=== PATIENT | female | born 1980 | race Caucasian/White ===

== ENCOUNTER 2021-04-30 06:44 | Day surgery (SDC) | payer BC ==
[2021-04-30] MEDS: Lactated Ringers 1,000 ML IV SCH ×2 (06:55→11:12)
[2021-04-30] MEDS ORDERED: Lidocaine 1%/Sod Bicarbonate in NS 8.4% 1 ML Syringe IDERM PRN (07:00)
[2021-04-30] MEDS ORDERED: Sodium Chloride 0.9% 10 ML Syringe FLUSH PRN (07:00)
[2021-04-30] MEDS ORDERED: Propofol 200 MG/20 ML SDV ONE (07:04)
[2021-04-30] MEDS ORDERED: Ondansetron 4 MG/2 ML SDV ONE (07:04)
[2021-04-30] MEDS ORDERED: Rocuronium 50 MG/5 ML Vial ONE (07:04)
[2021-04-30] MEDS ORDERED: fentaNYL 250 MCG/5 ML SDV ONE (07:05)
[2021-04-30] MEDS ORDERED: Midazolam 1 MG/ML 2 ML SDV ONE (07:05)
[2021-04-30] MEDS ORDERED: Lidocaine 1% 4 ML ONE (07:05)
[2021-04-30] MEDS ORDERED: ceFAZolin 1 GM Vial ONE (07:09)
[2021-04-30] MEDS ORDERED: Bupivacaine 0.5% 30 ML SDV ONE (07:21)
--- NOTE | 2021-04-30 07:28 | PCM.PREANE ---
Preanesthetic Assessment - Procedure Proposed Procedure: vaginal hysterectomy - Anesthesia/Transfusion/Family Hx Anesthesia History: Prior Anesthesia Without Reaction Family History of Anesthesia Reaction: No Transfusion History: No Prior Transfusion(s) - Review of Systems General: No Symptoms Pulmonary: No Symptoms Cardiovascular: Dyspnea on Exertion Gastrointestinal: No Symptoms Neurological: No Symptoms Other: Reports: Anxiety - Physical Assessment NPO Status Date: 04/29/21 NPO Status Time: 00:00 Vital Signs: Last Vital Signs Temp 36.2 C 04/30/21 06:50 Pulse 80 04/30/21 06:50 Resp 16 04/30/21 06:50 BP 127/76 04/30/21 06:50 Pulse Ox 95 04/30/21 06:50 Height: 1.78 m Weight: 101.8 kg ASA Class: 2 Mental Status: Alert & Oriented x3 Airway Class: Mallampati = 1 Dentition: Reports: Normal Dentition Thyro-Mental Finger Breadths: 3 Mouth Opening Finger Breadths: 3 ROM/Head Extension: Full Lungs: Clear to Auscultation, Normal Respiratory Effort Cardiovascular: Regular Rate, Regular Rhythm - Allergies Allergies/Adverse Reactions: Allergies Allergy/AdvReac Type Severity Reaction Status Date / Time No Known Allergies Allergy Verified 04/29/21 15:27 - Anesthesia Plan Pre-Op Medication Ordered: None - Acknowledgements Anesthesia Type Planned: General Anesthesia Pt an Appropriate Candidate for the Planned Anesthesia: Yes Alternatives and Risks of Anesthesia Discussed w Pt/Guardian: Yes Pt/Guardian Understands and Agrees with Anesthesia Plan: Yes PreAnesthesia Questionnaire Gastrointestinal History: Reports: Irritable Bowel Syndrome 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 History: Reports: Fibroids, Psychiatric History: Reports: Anxiety, Depression - Past Surgical History Other HEENT Surgeries/Procedures: wears glasses Other Endocrine Surgeries/Procedures: diet controlled hypoglycemia - SUBSTANCE USE Tobacco Use Status *Q: Former Tobacco User Tobacco Use Within Last Twelve Months: No Second Hand Smoke Exposure: No Days Per Week of Alcohol Use: 0 Number of Drinks Per Day: 0 Total Drinks Per Week: 0 Recreational Drug Use History: No - HOME MEDS Home Medications: Home Meds Sertraline [Zoloft] 100 mg PO DAILY 04/29/21 [History] - CURRENT (IN HOUSE) MEDS Current Meds: Current Medications Lactated Ringer's (Ringers, Lactated) 1,000 mls @ 125 mls/hr IV ASDIRECTED TETO Stop: 04/30/21 23:00 Lidocaine/Sodium Bicarbonate (Lidocaine 1%/Sod Bicarbonate In Ns 8.4% 1 Ml Syringe) 0.25 ml IDERM ONETIME PRN PRN Reason: Prior to IV Start Stop: 04/30/21 18:00 Sodium Chloride (Sodium Chloride 0.9% 10 Ml Syringe) 10 ml FLUSH ASDIRECTED PRN PRN Reason: Keep Vein Open Stop: 04/30/21 18:00 Discontinued Medications Cefazolin Sodium (Cefazolin 1 Gm Vial) Confirm Administered Dose 2 gm .ROUTE .STK-MED ONE Stop: 04/30/21 07:10 Fentanyl (Fentanyl 250 Mcg/5 Ml Sdv) Confirm Administered Dose 250 mcg .ROUTE .STK-MED ONE Stop: 04/30/21 07:06 Lidocaine HCl (Xylocaine-Mpf 1%) Confirm Administered Dose 4 mls @ as directed .ROUTE .STK-MED ONE Stop: 04/30/21 07:06 Midazolam HCl (Midazolam 1 Mg/Ml 2 Ml Sdv) Confirm Administered Dose 2 mg .ROUTE .STK-MED ONE Stop: 04/30/21 07:06 Ondansetron HCl (Ondansetron 4 Mg/2 Ml Sdv) Confirm Administered Dose 4 mg .ROUTE .STK-MED ONE Stop: 04/30/21 07:05 Propofol (Propofol 200 Mg/20 Ml Sdv) Confirm Administered Dose 200 mg .ROUTE .STK-MED ONE Stop: 04/30/21 07:05 Rocuronium [place] (Rocuronium 50 Mg/5 Ml Vial) Confirm Administered Dose 50 mg .ROUTE .STK-MED ONE Stop: 04/30/21 07:05
[2021-04-30] MEDS ORDERED: HYDROmorphone 0.5 MG/0.5 ML Syringe ONE ×2 (08:08→08:39)
[2021-04-30] MEDS: Sodium Chloride 0.9% 50 ML SDV ONE ×2 (08:11→08:22)
[2021-04-30] MEDS: Lidocaine 1% with EPINEPHrine 1:100,000 10 ML MDV ONE ×2 (08:11→08:21)
[2021-04-30] MEDS ORDERED: Lactated Ringers 1,000 ML ONE (08:15)
[2021-04-30] MEDS ORDERED: Acetaminophen/oxyCODONE 325-5 MG Tab PO PRN (08:58)
[2021-04-30] MEDS ORDERED: Ondansetron 4 MG/2 ML SDV IVPUSH PRN (08:58)
[2021-04-30] MEDS ORDERED: Ketorolac 30 MG/ML SDV IVPUSH SCH (09:00)
--- NOTE | 2021-04-30 09:09 | PCM.OPNOTE ---
- General Post-Op/Procedure Note Date of Surgery/Procedure: 04/30/21 Operative Procedure(s): Total vaginal hysterectomy with bilateral salpingectomy Findings: 5-1/2 cm uterine fibroid anterior left uterus. Fallopian tubes and ovaries otherwise unremarkable. Pre Op Diagnosis: 1. Thickened endometrium. 2. Menorrhagia. 3. Uterine fibroids. 4. Dysmenorrhea Post-Op Diagnosis: Same Anesthesia Technique: General ET Tube Other Anesthesia Type: Lidocaine quarter percent with [id number] mL totallocal Primary Surgeon: Christiano Sutton Secondary Surgeon: Austyn Sahni Anesthesia Provider: reinier carey Reason Doorperson Or Luggage Porter Was Necessary: Retraction, assistance, patient safety, quality of care. Pathology: Uterus, bilateral fallopian tubes in one specimen container Fluid Replacement, Intraop: 1,600 EBL in mLs: 300 Complications: None Condition: Good Free Text/Narrative:: Surgery duration: 42 minutes Procedure: The patient was placed in supine position on the operating table. General endotracheal anesthesia was accomplished. After positioning, and adequate prep and drape, the procedure was then performed. Sterile speculum was placed in the vagina and cervix was visualized. Cervix was injected with lidocaine quarter percent with epinephrine-20 mL used. A full circumference incision was made in the cervical epithelium. The bladder was pushed well back off cervix. Posterior cul-de-sac was then entered sharply without problems. Left uterosacral was crossclamped with a Enseal vessel closure system. The left uterosacral and then the right uterosacral ligament pedicles were developed using the Enseal system. The right cardinal ligament, uterine vasculature and broad ligament along with the cornual area including tube and round ligament were then developed. This is a fibroid was anterior and did not allow easy access to the anterior cul-de-sac. The uterus was then rotated posteriorly and the access to the left upper broad ligament fallopian tube and cardinal ligament pedicle was then exposed and more easily developed. These pedicles were clamped with a Donovan clamp and eventually suture-ligated with #1 Vicryl with a Donovan stitch. Left and right fallopian tube was normal in appearance.. Using Enseal vessel closure system each of the tubes was then removed and sent with the specimen. The patient was found to be hemostatically intact at this time. Both posterior and anterior vaginal cuff was sutured for hemostatic reasons with a running locked suture of 0 Monocryl from the 2 o'clock position to the 10 o'clock position posteriorly. Vaginal cuff was then closed from right to left side with a running locked suture of 0 Monocryl. Patient was returned to supine position and awakened from general endotracheal anesthesia. She tolerated the procedure and left the operating room in satisfactory condition.
[2021-04-30] MEDS ORDERED: Ketorolac 30 MG/ML SDV IVPUSH PRN (09:13)
[2021-04-30] MEDS ORDERED: fentaNYL 100 MCG/2 ML SDV IVPUSH PRN (09:13)
[2021-04-30] MEDS ORDERED: HYDROmorphone 0.5 MG/0.5 ML Syringe IVPUSH PRN (09:13)
--- NOTE | 2021-04-30 09:15 | PCM.POSTAN ---
POST ANESTHESIA ASSESSMENT - MENTAL STATUS Mental Status: Alert, Oriented - VITAL SIGNS Vital Signs: Last Vital Signs Temp 36.2 C 04/30/21 06:50 Pulse 80 04/30/21 06:50 Resp 16 04/30/21 06:50 BP 127/76 04/30/21 06:50 Pulse Ox 95 04/30/21 06:50 - RESPIRATORY Respiratory Status: Respiratory Rate WNL, Airway Patent, O2 Saturation Stable - CARDIOVASCULAR CV Status: Pulse Rate WNL, Blood Pressure Stable - GASTROINTESTINAL GI Status: No Symptoms - PAIN Pain Score: 0 - POST OP HYDRATION Hydration Status: Adequate & Stable - OBSERVATIONS Free Text/Narrative:: no anesthesia complications noted
--- NOTE | 2021-04-30 11:45 | PCM48HPAN ---
Post Anesthesia Note - EVALUATION WITHIN 48HRS OF ANESTHETIC Vital Signs in Normal Range: Yes Patient Participated in Evaluation: Yes Respiratory Function Stable: Yes Airway Patent: Yes Cardiovascular Function Stable: Yes Hydration Status Stable: Yes Pain Control Satisfactory: Yes Nausea and Vomiting Control Satisfactory: Yes Mental Status Recovered: Yes Vital Signs: Last Vital Signs Temp 36.4 C 04/30/21 10:50 Pulse 67 04/30/21 11:20 Resp 19 04/30/21 11:20 BP 137/81 04/30/21 11:20 Pulse Ox 100 04/30/21 11:20 - COMMENTS/OBSERVATIONS Free Text/Narrative:: no anesthesia complications noted
[2021-04-30] MEDS ORDERED: Ibuprofen 600 MG Tab PO PRN (15:00)
== END 2021-04-30 15:30 | disposition home or self-care (01) ==
LOC: JD.SDS 06:44
PROVIDERS: ATTEND Obstetrics & Gynecology
DX: N85.8 Other specified noninflammatory disorders of uterus (principal); D25.9 Leiomyoma of uterus, unspecified; N83.8 Other noninflammatory disorders of ovary, fallopian tube and broad ligament; K66.0 Peritoneal adhesions (postprocedural) (postinfection); Z98.890 Other specified postprocedural states; Z87.891 Personal history of nicotine dependence
CPT/HCPCS: 36415; 58262; A9270; J0690; J1170; J1885; J2250; J2405; J2704; J3010; J3490; J7120; 00944